=== PATIENT | female | born 1985 ===

== ENCOUNTER 2019-04-10 19:42 | Emergency (ER) | payer OTHER ==
[~2019-04-10] VITALS: Ht 162.6 cm; Wt 63.6 kg
[2019-04-10 20:30] VITALS: BP 120/82
== END 2019-04-10 21:55 | disposition home or self-care (01) ==
LOC: EMS 19:42
DX: O9A.211 Injury, poisoning and certain other consequences of external causes complicating pregnancy, first trimester (principal); S93.492A Sprain of other ligament of left ankle, initial encounter; Z91.018 Allergy to other foods; Z3A.01 Less than 8 weeks gestation of pregnancy; W50.2XXA Accidental twist by another person, initial encounter; Y93.89 Activity, other specified; Y92.89 Other specified places as the place of occurrence of the external cause; Y99.8 Other external cause status
CPT/HCPCS: 29515